=== PATIENT | female | born 1930 | race Caucasian/White ===

== ENCOUNTER 2018-01-28 17:11 | Inpatient (IN) | END 2018-02-20 16:26 | disposition home or self-care (01) | DRG 552 ==

== ENCOUNTER 2019-03-17 21:35 | Inpatient (IN) | payer MEDICAID, OTHER ==
[~2019-03-17] VITALS: Ht 170.2 cm; Wt 69.1 kg
[~2019-03-17 21:35] MED LIST: ALBU8.5H8 INH; ALEN70TA5; ASPI-817 PO; BENA40TA56 PO; CALC600T; FER325 PO; IBUP-1541 PO; LEVO500T48 PO; MECL12.574 PO; METO25TA54; OMEP20CA17 PO; PRAV20TA63 PO
[2019-03-18] MEDS ORDERED: ASPIRIN 325 MG TAB PO ONE
[2019-03-18] MEDS ORDERED: ACETAMINOPHEN 325 MG TAB PO ONE (01:30)
[2019-03-18 03:38] VITALS: Ht 170.2 cm; Wt 69.1 kg
[2019-03-18 04:00] VITALS: BP 139/77; PULSE 75; RESP 17
[2019-03-18] MEDS ORDERED: ONDANSETRON 4 MG INJ IV PRN ×2 (04:00)
[2019-03-18] MEDS ORDERED: ACETAMINOPHEN 325 MG TAB PO PRN ×2 (04:00)
[2019-03-18] MEDS ORDERED: NACL 0.9% 3 ML SYG IV SCH (04:00)
[2019-03-18] MEDS: PANTOPRAZOLE (EC) 40 MG TAB PO SCH (06:03)
[2019-03-18] MEDS ORDERED: morphine 4 MG/ML VIAL IV STA (06:21)
[2019-03-18 07:45] VITALS: BP 147/69; PULSE 71; RESP 17
[2019-03-18] MEDS: METOPROLOL (XL) 25 MG TAB PO SCH (08:04)
[2019-03-18] MEDS: FERROUS SULFATE (EC) 325 MG TAB PO SCH ×3 (08:04→20:44)
[2019-03-18] MEDS: BENAZEPRIL 40 MG TAB PO SCH (08:05)
[2019-03-18] MEDS: ASPIRIN (EC) 81 MG TAB PO SCH (08:05)
[2019-03-18] MEDS: HEPARIN 5,000 UNIT/1 ML VIAL SC SCH ×2 (08:07→20:52)
[2019-03-18] MEDS ORDERED: IOHEXOL 100 ML ONE (08:11)
[2019-03-18] MEDS ORDERED: SOD CHLORIDE 0.9% 100 ML ONE (08:11)
[2019-03-18] MEDS ORDERED: METHYLPREDNISOLONE 125 MG INJ IV SCH (09:00)
[2019-03-18] MEDS: LEVOFLOXACIN 500MG/D5W (PMX) 100 ML IVPB SCH (10:09)
[2019-03-18] MEDS ORDERED: HYDROCODONE/APAP (5/325) TAB PO PRN (11:30)
[2019-03-18 11:33] VITALS: BP 144/77; PULSE 64; RESP 17
[2019-03-18] MEDS: CARISOPRODOL 350 MG TAB PO SCH ×2 (12:24→20:43)
[2019-03-18 15:50] VITALS: BP 130/60; PULSE 71; RESP 18
[2019-03-18 19:22] VITALS: BP 139/72; PULSE 74; RESP 18
[2019-03-18] MEDS: ATORVASTATIN 10 MG TAB PO SCH (20:44)
[2019-03-18 23:55] VITALS: BP 128/64; PULSE 65; RESP 18
[2019-03-19] VITALS (7 sets, daily range): BP systolic 108–156; BP diastolic 52–78; PULSE 61–98; RESP 18–24
[2019-03-19] MEDS: PANTOPRAZOLE (EC) 40 MG TAB PO SCH (05:40)
[2019-03-19] MEDS: FERROUS SULFATE (EC) 325 MG TAB PO SCH ×3 (08:19→20:22)
[2019-03-19] MEDS: ASPIRIN (EC) 81 MG TAB PO SCH (08:19)
[2019-03-19] MEDS: LEVOFLOXACIN 500MG/D5W (PMX) 100 ML IVPB SCH (08:20)
[2019-03-19] MEDS: BENAZEPRIL 40 MG TAB PO SCH (08:20)
[2019-03-19] MEDS: METOPROLOL (XL) 25 MG TAB PO SCH (08:20)
[2019-03-19] MEDS: ALBUTEROL HFA 8 GM INHALER INH PRN ×2 (08:26→14:20)
[2019-03-19] MEDS: CARISOPRODOL 350 MG TAB PO SCH ×3 (08:32→20:21)
[2019-03-19] MEDS: HEPARIN 5,000 UNIT/1 ML VIAL SC SCH ×2 (08:50→20:37)
[2019-03-19] MEDS: ATORVASTATIN 10 MG TAB PO SCH (20:22)
[2019-03-19] MEDS: MECLIZINE 12.5 MG TAB PO SCH (23:22)
[2019-03-20] MEDS ORDERED: GUAIFENESIN/CODEINE 5ML CUP PO ONE (03:00)
[2019-03-20] MEDS ORDERED: ZOLPIDEM 5 MG TAB PO PRN ×2 (03:00)
[2019-03-20] MEDS ORDERED: GUAIFENESIN/DM 5ML CUP ONE ×2 (03:01→03:02)
[2019-03-20] MEDS ORDERED: GUAIFENESIN/DM 5ML CUP PO ONE (03:30)
[2019-03-20] MEDS ORDERED: GUAIFENESIN 20 MG/ML 5ML CUP PO ONE (03:30)
[2019-03-20 04:13] VITALS: BP 135/66; PULSE 70; RESP 22
[2019-03-20] MEDS: PANTOPRAZOLE (EC) 40 MG TAB PO SCH (06:08)
[2019-03-20 07:13] VITALS: BP 129/60; PULSE 78; RESP 18
[2019-03-20] MEDS: LEVOFLOXACIN 500MG/D5W (PMX) 100 ML IVPB SCH (08:50)
[2019-03-20] MEDS: MECLIZINE 12.5 MG TAB PO SCH ×2 (10:01→13:52)
[2019-03-20] MEDS: CARISOPRODOL 350 MG TAB PO SCH ×2 (10:01→13:52)
[2019-03-20] MEDS: FERROUS SULFATE (EC) 325 MG TAB PO SCH ×2 (10:02→13:52)
[2019-03-20] MEDS: ASPIRIN (EC) 81 MG TAB PO SCH (10:02)
[2019-03-20] MEDS: BENAZEPRIL 40 MG TAB PO SCH (10:02)
[2019-03-20] MEDS: METOPROLOL (XL) 25 MG TAB PO SCH (10:02)
[2019-03-20] MEDS: HEPARIN 5,000 UNIT/1 ML VIAL SC SCH (10:12)
[2019-03-20 12:16] VITALS: BP 118/65; PULSE 78; RESP 18
[2019-03-20 17:11] VITALS: BP 125/67; PULSE 78; RESP 17
== END 2019-03-20 17:58 | disposition home or self-care (01) | DRG 149 ==
LOC: E/R 21:35 → 6WM 23:37 → OBSVTOIN 03-18 07:13
PROVIDERS: ADMIT Internal Medicine; ATTEND Internal Medicine
DX: H81.393 Other peripheral vertigo, bilateral (principal); I48.2 Chronic atrial fibrillation; J20.9 Acute bronchitis, unspecified; I10 Essential (primary) hypertension; I25.10 Atherosclerotic heart disease of native coronary artery without angina pectoris; M54.2 Cervicalgia; D50.9 Iron deficiency anemia, unspecified; R10.13 Epigastric pain; M25.512 Pain in left shoulder; Z79.82 Long term (current) use of aspirin; Z98.49 Cataract extraction status, unspecified eye; Z90.49 Acquired absence of other specified parts of digestive tract
CPT/HCPCS: 36415; 70450; 70496; 70498; 70551; 71045; 72125; 74176; 80048; 80053; 80061; 80307; 81003; 82550; 82553; 82962; 83036; 83735; 84100; 84443; 84484; 85025; 85610; 85730; 92526; 92610; 93005; 93306; 97162; G0378; J1644; J1956; J2270; J2930; Q9967